=== PATIENT | female | born 1990 | race Two or more races ===

== ENCOUNTER 2016-12-30 01:25 | Emergency (ER) | payer BC, OTHER ==
[~2016-12-30] VITALS: Ht 160 cm; Wt 83.5 kg
[2016-12-30 01:36] VITALS: Ht 160 cm; Wt 83.5 kg
[2016-12-30] MEDS ORDERED: KETOROLAC 30 MG INJ IV STA (01:58)
[2016-12-30] MEDS ORDERED: ONDANSETRON 4 MG INJ IV STA (01:58)
[2016-12-30] MEDS ORDERED: SOD CHLORIDE 0.9% 1,000 ML IV STA (01:58)
[2016-12-30] MEDS ORDERED: ACETAMINOPHEN 325 MG TAB PO ONE (02:00)
--- NOTE | 2016-12-30 02:15 | ERD ---
ER Documentation Chief Complaint Date/Time DATE: 12/30/16 TIME: 02:13 Chief Complaint Pt reports fever today and chills HPI 26-year-old female presents here in emergency department for complaint of fever and chills that started today. Patient denies any other symptoms. Patient did have a history of urinary tract infection before and was admitted for this. Patient does not have any hematuria or dysuria, denies any flank pain. Patient states that her vaginal bleeding, menstruation has resolved after 45 days of ammenorrhea, currently breast-feeding. Patient did not take any medications to help with symptoms. ROS All systems reviewed and are negative except as per history of present illness. Medications Home Meds Active Scripts Acetaminophen* (Tylophen*) 500 Mg Capsule, 1 CAP PO Q6H Y for PAIN AND OR ELEVATED TEMP, #20 CAP Prov:KARI HINOJOSA NP 12/30/16 Ibuprofen* (Motrin*) 600 Mg Tab, 600 MG PO Q6H Y for PAIN AND OR ELEVATED TEMP, #30 TAB Prov:KRAI HINOJOSA NP 12/30/16 Cephalexin* (Keflex*) 500 Mg Capsule, 500 MG PO QID for 10 Days, CAP Prov:KARI HINOJOSA TAX DIRECTOR 12/30/16 Reported Medications [none] Unknown Strength No Conflict Check 12/30/16 Allergies Allergies: Coded Allergies: No Known Allergy (Unverified , 12/30/16) PMhx/Soc Medical and Surgical Hx: pt denies Medical Hx, pt denies Surgical Hx Hx Alcohol Use: No Hx Substance Use: No Hx Tobacco Use: No FmHx Family History: No coronary disease, No diabetes, No other Physical Exam Vitals Vital Signs Date Time Temp Pulse Resp B/P Pulse Ox O2 Delivery O2 Flow Rate FiO2 12/30/16 05:46 98.1 76 16 88/86 98 Room Air 12/30/16 01:36 103.5 156 18 110/75 100 Physical Exam GENERAL: The patient is well developed and appropriate for usual state of health, in no apparent distress. CHEST: Clear to auscultation bilaterally. There are no rales, wheezes or rhonchi. HEART: Regular rate and rhythm. No murmurs, clicks, rubs or gallops. No S3 or S4. ABDOMEN: Soft, nontender and nondistended. Good bowel sounds. No rebound or guarding. No gross peritonitis. No gross organomegaly or masses. No Kong sign or McBurney point tenderness. BACK: No midline or flank tenderness. EXTREMITIES: Equal pulses bilaterally. There is no peripheral clubbing, cyanosis or edema. No focal swelling or erythema. Full range of motion. Grossly neurovascularly intact. NEURO: Alert and oriented. Cranial nerves 2-12 intact. Motor strength in all 4 extremities with 5/5 strength. Sensation grossly intact. Normal speech and gait. SKIN: There is no apparent rash or petechia. The skin is warm and dry. HEMATOLOGIC AND LYMPHATIC: There is no evidence of excessive bruising or lymphedema. No gross cervical, axillary, or inguinal lymphadenopathy. Result Diagram: 12/30/16 0230 12/30/16 0230 Results 24 hrs Laboratory Tests Test 12/30/16 02:30 12/30/16 02:40 White Blood Count 12.710^3/ul Red Blood Count 4.3310^6/ul Hemoglobin 13.1g/dl Hematocrit 38.7% Mean Corpuscular Volume 89.4fl Mean Corpuscular Hemoglobin 30.3pg Mean Corpuscular Hemoglobin Concent 33.9g/dl Red Cell Distribution Width 12.9% Platelet Count 83592^3/UL Mean Platelet Volume 9.4fl Neutrophils % 85.1% Lymphocytes % 6.4% Monocytes % 7.3% Eosinophils % 0.2% Basophils % 0.4% Nucleated Red Blood Cells % 0.0/100WBC Neutrophils # 10.810^3/ul Lymphocytes # 0.810^3/ul Monocytes # 0.910^3/ul Eosinophils # 0.010^3/ul Basophils # 0.110^3/ul Nucleated Red Blood Cells # 0.010^3/ul Sodium Level 142mmol/L Potassium Level 3.3mmol/L Chloride Level 107mmol/L Carbon Dioxide Level 24mmol/L Anion Gap 14 Blood Urea Nitrogen 8mg/dl Creatinine 0.70mg/dl Glucose Level 106mg/dl Lactic Acid Level 1.6mmol/L Calcium Level 9.0mg/dl Total Bilirubin 0.9mg/dl Direct Bilirubin 0.00mg/dl Indirect Bilirubin 0.9mg/dl Aspartate Amino Transf (AST/SGOT) 28IU/L Alanine Aminotransferase (ALT/SGPT) 33IU/L Alkaline Phosphatase 195IU/L Total Protein 7.3g/dl Albumin 4.0g/dl Globulin 3.30g/dl Albumin/Globulin Ratio 1.21 Lipase 85U/L Urine Color YELLOW Urine Clarity SLIGHTLY CLOUDY Urine pH 5.0 Urine Specific [place] 1.012 Urine Ketones NEGATIVEmg/dL Urine Nitrite NEGATIVEmg/dL Urine Bilirubin NEGATIVEmg/dL Urine Urobilinogen NEGATIVEmg/dL Urine Leukocyte Esterase 1+Cal/ul Urine Microscopic RBC > 182/HPF Urine Microscopic WBC 59/HPF Urine Squamous Epithelial Cells FEW/HPF Urine Bacteria FEW/HPF Urine Hemoglobin 3+mg/dL Urine Glucose NEGATIVEmg/dL Urine Total Protein NEGATIVEmg/dl Current Medications Medications (Trade) Dose Ordered Sig/Lenora Route PRN Reason Start Time Stop Time Status Last Admin Dose Admin Sodium Chloride (NS) 1,000 ml @ 1,000 mls/hr Q1H STAT IV 12/30/16 01:58 12/30/16 02:57 DC 12/30/16 03:10 Ondansetron HCl (Zofran Inj) 4 mg ONCE STAT IV 12/30/16 01:58 12/30/16 02:00 DC 12/30/16 03:09 Ketorolac Tromethamine (Toradol) 30 mg ONCE STAT IV 12/30/16 01:58 12/30/16 02:00 DC 12/30/16 03:09 Acetaminophen 650 mg 650 mg ONCE ONCE PO 12/30/16 02:00 12/30/16 02:01 DC 12/30/16 03:09 Ceftriaxone Sodium (Rocephin) 50 ml @ 100 mls/hr ONCE ONCE IVPB 12/30/16 04:00 12/30/16 04:29 DC 12/30/16 03:59 Patient was given medicines for fever control here in the emergency department. After treatment, patient temperature improved and lower. Patient appears well and is hemodynamically stable. Normal saline IV bolus was given here in emergency department for rehydration, patient tolerated IV fluids. PROCEDURE: US Pelvis. CLINICAL INDICATION: Abdominal pain. LMP 12/27/2016 TECHNIQUE: Multiple sonographic images of the pelvis were obtained utilizing a transabdominal and endovaginal technique. The images were reviewed on a PACS workstation. COMPARISON: None. FINDINGS: The uterus is anteverted and measures 7.8 x 4.4 x 7.2 cm. The endometrial echo complex is normal and measures 4.7 millimeter. There is no evidence for free fluid. The right ovary has a normal echotexture and measures 2.8 x 1.8 x 2.2 cm . The left ovary has a normal echotexture and measures 3.4 x 2.1 x 2.6 cm. Doppler flow is demonstrated in both ovaries. No adnexal masses are noted. IMPRESSION: Unremarkable pelvic ultrasound. Signed By: Winter Theodore M.D 12/30/2016 3:54:48 AM Procedures/MDM Medical decision making: Patient's fever and chills most likely consistent with urinary tract infection. Possible early pyelonephritis. Patient's lactic acid is normal, no symptoms of any sepsis, fever is controlled at this time. Patient was given IV Rocephin here in emergency department, was treated, patient verbalized feeling much better. Symptoms of any acute abdominal emergencies at this time. No retained products. Prescription was given for Keflex, ibuprofen and Tylenol, is advised to follow primary care doctor in 2-3 days for reevaluation of symptoms. Patient is advised to return to emergency department for any worsening symptoms. Disposition: Home. Stable. Departure Diagnosis: Primary Impression: UTI (urinary tract infection) Urinary tract infection type: acute cystitis Hematuria presence: without hematuria Qualified Code: N30.00 - Acute cystitis without hematuria Condition: Stable Patient Instructions: Understanding Urinary Tract Infections (UTIs) KARI HINOJOSA NP Dec 30, 2016 02:15
[2016-12-30 02:54] LABS: BASOPHIL # 0.1 10^3/ul (0.0-0.1); BASOPHILS % 0.4 % (0.0-2.0); EOSINOPHILS % 0.2 % (0.0-7.0); HEMATOCRIT 38.7 % (37.0-47.0); HEMOGLOBIN 13.1 g/dl (12.0-16.0); LYMPHOCYTES # 0.8 10^3/ul (0.8-2.9); LYMPHOCYTES % 6.4 % (15.0-51.0); MEAN CORPUSCULAR HEMOGLOBIN 30.3 pg (29.0-33.0); MEAN CORPUSCULAR HGB CONC 33.9 g/dl (32.0-37.0); MEAN CORPUSCULAR VOLUME 89.4 fl (82.0-101.0); MEAN PLATELET VOLUME 9.4 fl (7.4-10.4); MONOCYTE # 0.9 10^3/ul (0.3-0.9); MONOCYTES % 7.3 % (0.0-11.0); NEUTROPHIL # 10.8 10^3/ul (1.6-7.5); NEUTROPHILS % 85.1 % (39.0-77.0); PLATELET COUNT 251 10^3/UL (140-415); RED BLOOD COUNT 4.33 10^6/ul (4.20-5.40); RED CELL DISTRIBUTION WIDTH 12.9 % (11.5-14.5); WHITE BLOOD COUNT 12.7 10^3/ul (4.8-10.8)
[2016-12-30 03:27] LABS: ALBUMIN/GLOBULIN RATIO 1.21; BILIRUBIN,INDIRECT 0.9 mg/dl (0-1.1); BILIRUBIN,TOTAL 0.9 mg/dl (0.2-1.3); CREATININE 0.7 mg/dl (0.44-1.00); POTASSIUM 3.3 mmol/L (3.5-5.1); TOTAL PROTEIN 7.3 g/dl (6.1-8.1)
[2016-12-30 03:45] LABS: ADD UMIC YES; UR ASCORBIC ACID NEGATIVE (NEGATIVE); UR BACTERIA FEW /HPF (NONE SEEN); UR BILIRUBIN (Dip) NEGATIVE (NEGATIVE); UR BLOOD (Dip) 3+ mg/dL (NEGATIVE); UR CLARITY SLIGHTLY CLOUDY (CLEAR); UR COLOR YELLOW (YELLOW); UR GLUCOSE (Dip) NEGATIVE (NEGATIVE); UR KETONES (Dip) NEGATIVE (NEGATIVE); UR LEUKOCYTE ESTERASE (Dip) 1+ Leu/ul (NEGATIVE); UR NITRITE (Dip) NEGATIVE (NEGATIVE); UR RBC > 182 /HPF (0-5); UR SPECIFIC GRAVITY (Dip) 1.012 (1.003-1.030); UR SQUAMOUS EPITHELIAL CELL FEW /HPF (FEW); UR TOTAL PROTEIN (Dip) NEGATIVE (NEGATIVE); UR UROBILINOGEN (Dip) NEGATIVE (NEGATIVE)
[2016-12-30] MEDS ORDERED: CEFTRIAXONE 1 GM/50 ML (PMX) 50 ML IVPB ONE (04:00)
[2016-12-30] MEDS ORDERED: ACET500C5 PO (05:28)
[2016-12-30] MEDS ORDERED: IBUP-1542 PO (05:28)
[2016-12-30] MEDS ORDERED: CEPH-443 PO (05:28)
[2016-12-30 05:46] VITALS: BP 88/86; PULSE 76; RESP 16; TEMP 98.1
--- NOTE | 2016-12-30 06:34 | RADRPT ---
PROCEDURE: US Pelvis. CLINICAL INDICATION: Abdominal pain. LMP 12/27/2016 TECHNIQUE: Multiple sonographic images of the pelvis were obtained utilizing a transabdominal and endovaginal technique. The images were reviewed on a PACS workstation. COMPARISON: None. FINDINGS: The uterus is anteverted and measures 7.8 x 4.4 x 7.2 cm. The endometrial echo complex is normal and measures 4.7 millimeter. There is no evidence for free fluid. The right ovary has a normal echotext ure and measures 2.8 x 1.8 x 2.2 cm . The left ovary has a normal echotexture and measures 3.4 x 2. 1 x 2.6 cm. Doppler flow is demonstrated in both ovaries. No adnexal masses are noted. IMPRESSION: Unremarkable pelvic ultrasound. Physician Ashley Date Time Electronically viewed and signed by Physician Ashley on 12/30/2016 03:54 /
== END 2016-12-30 05:51 | disposition home or self-care (01) ==
LOC: FTE 01:25
DX: N30.00 Acute cystitis without hematuria (principal); R10.2 Pelvic and perineal pain
CPT/HCPCS: 36415; 76856; 80053; 81001; 83605; 83690; 85025; 87040; 87086; 96374; 96375; 99285; J0696; J1885; J2405; J7030; Z7610

== ENCOUNTER 2018-02-25 17:29 | Emergency (ER) | END 2018-02-25 21:15 | disposition home or self-care (01) ==

== ENCOUNTER 2018-03-07 19:30 | Emergency (ER) | END 2018-03-07 21:40 | disposition home or self-care (01) ==

== ENCOUNTER 2018-12-07 14:32 | Emergency (ER) | payer BC ==
[~2018-12-07] VITALS: Ht 165.1 cm; Wt 92.3 kg
[~2018-12-07 14:32] MED LIST: ACET500C5 PO; CEPH-443 PO; IBUP-1542 PO; NAPR-985 PO
[2018-12-07 14:47] VITALS: Ht 165.1 cm; Wt 92.3 kg
[2018-12-07] MEDS ORDERED: ACETAMINOPHEN 500 MG TAB PO STA ×2 (16:59→17:07)
[2018-12-07 19:06] VITALS: BP 118/64; PULSE 82; RESP 16
== END 2018-12-07 19:06 | disposition home or self-care (01) ==
LOC: FTE 14:32
DX: O9A.212 Injury, poisoning and certain other consequences of external causes complicating pregnancy, second trimester (principal); S52.612A Displaced fracture of left ulna styloid process, initial encounter for closed fracture; S52.572A Other intraarticular fracture of lower end of left radius, initial encounter for closed fracture; W01.0XXA Fall on same level from slipping, tripping and stumbling without subsequent striking against object, initial encounter; Y92.9 Unspecified place or not applicable; Z3A.20 20 weeks gestation of pregnancy
CPT/HCPCS: 29125; 73090; 73110; 73130; 76805; Z7502; Z7610